=== PATIENT | male | born 1945 | race Caucasian/White ===

== ENCOUNTER → 2016-10-31 | Outpatient (CLI) | payer OTHER ==
--- NOTE | 2016-10-31 09:59 | EKG ---
[address] [address] Measurements Intervals [place] Rate: 43 P: 63 [place]: 178 QRS: 29 QRSD: 94 T: 54 QT: 450 QTc: 396 Interpretive Statements SINUS BRADYCARDIA INTERPRETATION BASED ON A DEFAULT AGE OF 40 YEARS No previous ECG available for comparison Electronically Signed On 10-31-16 12:16:25 MST by Shahram Serrano MD [email or web address]
[2016-10-31 10:44] LABS: BASOPHILS # (AUTO) 0.04 10*3/UL; BASOPHILS % (AUTO) 0.7 % (0-1); EOSINOPHILS % (AUTO) 3.4 % (0-8); HEMATOCRIT 43.3 % (42.0-52.0); HEMOGLOBIN 14.9 g/dL (14.0-18.0); IMM GRAN % (AUTO) 0.2 % (0-5); IMM GRAN# (AUTO) 0.01 10*3/UL; LYMPHOCYTES # (AUTO) 1.96 10*3/uL; LYMPHOCYTES % (AUTO) 36.7 % (10-50); MEAN CORPUSCULAR HEMOGLOBIN 32.5 PG (27-31); MEAN CORPUSCULAR HGB CONC 34.4 g/dL (33-37); MEAN PLATELET VOLUME 10.9 FL (7.4-12.2); MONOCYTES # (AUTO) 0.66 10*3/UL (0.3-0.8); MONOCYTES % (AUTO) 12.4 % (5-15); NEUTROPHILS # (AUTO) 2.49 10*3/UL; NEUTROPHILS % (AUTO) 46.6 % (50-80); RED BLOOD COUNT 4.58 10^6/uL (4.70-6.10); WHITE BLOOD COUNT 5.34 10^3/uL (4.8-10.8)
[2016-10-31 10:47] LABS: PLATELET MORPHOLOGY COMMENT NORMAL MORPHOLOGY (NORM)
[2016-10-31 10:52] LABS: ASPARTATE AMINO TRANSFERASE 25 IU/L (21-57); BILIRUBIN,TOTAL 0.7 mg/dL (0.3-1.2); BLOOD UREA NITROGEN 17 mg/dL (7-22); BUN/CREATININE RATIO 15.45 (6-20); CALCIUM 9.7 mg/dL (8.7-10.7); CHLORIDE 104 meq/L (98-112); CREATININE 1.1 mg/dL (0.70-1.50); EST GLOMERULAR FILTRATION > 60 (>60 ml/min/1.73m(2)); GLUCOSE 94 mg/dL (78-110); POTASSIUM 4.9 meq/L (3.8-5.2); SODIUM 139 meq/L (135-145); TOTAL PROTEIN 6.5 g/dL (6.1-8.0)
[2016-11-01 17:48] LABS: HCV AB SCREEN Negative (Negative)
== END ==
LOC: MOB LAB 09:40
PROVIDERS: ATTEND Family Medicine
DX: R07.89 Other chest pain (principal); R91.1 Solitary pulmonary nodule; I34.1 Nonrheumatic mitral (valve) prolapse; E78.5 Hyperlipidemia, unspecified; I10 Essential (primary) hypertension; I49.8 Other specified cardiac arrhythmias; I50.9 Heart failure, unspecified; Z20.5 Contact with and (suspected) exposure to viral hepatitis
CPT/HCPCS: 80053; 83880; 84439; 84484; 85025; 86803; 93005; 93010

== ENCOUNTER → 2016-11-07 | Outpatient (CLI) | payer OTHER ==
[2016-11-07 08:45] LABS: HEMOGLOBIN A1C 5.72 % (4.2-6.0); MEAN BLOOD GLUCOSE (CALC) 104.476 mg/dL
[2016-11-07 08:47] LABS: LDL CHOLESTEROL,CALCULATED 82.6 mg/dL
[2016-11-07 09:51] LABS: FREE T4 (FREE THYROXINE) 0.88 ng/dL (0.93-1.71)
== END ==
LOC: LAB 08:22
PROVIDERS: ATTEND Family Medicine
DX: I49.8 Other specified cardiac arrhythmias (principal); R07.9 Chest pain, unspecified; I10 Essential (primary) hypertension; E78.5 Hyperlipidemia, unspecified; R91.1 Solitary pulmonary nodule; I34.1 Nonrheumatic mitral (valve) prolapse; E55.9 Vitamin D deficiency, unspecified
CPT/HCPCS: 36415; 80061; 82306; 83036; 84153; 84439; 84443

== ENCOUNTER → 2016-12-08 | Outpatient (CLI) | payer OTHER ==
--- NOTE | 2016-12-08 15:01 | DI ---
DUPLEX COLOR DOPPLER CAROTID ULTRASOUND, 12/08/2016 11:58 AM: Clinical History: Dizziness. Previous Exam: None at this facility. Technique: 2D real time imaging is supplemented with duplex color doppler ultrasound imaging. RIGHT CAROTID ARTERY: 2D real time imaging of the right carotid system shows a normal appearance of the right common caroti d artery and the right internal and extra carotid arteries. Peak systolic velocities through the righ t common carotid, the external carotid, and the internal carotid are 106 cm/s, 55 cm/s, and 113 cm/s, respectively. All values correspond to diameter stenoses of 0-49%. LEFT CAROTID ARTERY: 2D real time imaging of the left carotid system shows a normal appearance of the left common carotid artery. There is a small noncalcified plaque in the posterior aspect of the carotid bulb. The left in ternal and external carotid arteries have a normal appearance. Peak systolic velocities through the l eft common carotid, the external carotid, and the internal carotid are 88 cm/s, 107 cm/s, and 105 cm/ s, respectively. All values correspond to diameter stenoses of 0-49%. VERTEBRAL ARTERIES: There is antegrade flow through both vertebral arteries Cardiac rhythm is regular. Peak systolic [place] through the visualized portions of the right and left vertebral arteries are 58 cm/s and 41 cm /s, respectively. All values correspond to diameter stenoses of 0-49%. Throughout the entire exam, the patient exhibited sinus bradycardia with heart rates as low as 49 lacey ts per minute. Readin. There is no significant hemodynamic stenosis of either carotid system. 2. There is antegrade flow through both vertebral arteries. 3. Cardiac rhythm is regular but there is sinus bradycardia with one measurement as low as 49 beats per minute.
== END ==
LOC: US 11:52
PROVIDERS: ATTEND Family Medicine
DX: R42 Dizziness and giddiness (principal); R00.1 Bradycardia, unspecified
CPT/HCPCS: 93880

== ENCOUNTER → 2016-12-16 | Outpatient (CLI) | payer OTHER | LOC: MMPC 10:00 | PROVIDERS: ATTEND Specialist | DX: R00.2 Palpitations (principal); E87.5 Hyperkalemia; I10 Essential (primary) hypertension | CPT/HCPCS: 99203; G0463 ==

== ENCOUNTER → 2017-02-04 | Outpatient (CLI) | payer OTHER ==
[2017-02-04 15:20] LABS: BILIRUBIN,URINE NEGATIVE (NEG); COLOR,URINE YELLOW; GLUCOSE, URINE (UA) NEGATIVE (NEG); NITRATE,URINE NEGATIVE (NEG); PROTEIN,URINE NEGATIVE (NEG); UROBILINOGEN,URINE 0.2 mg/dL (0.2)
[2017-02-04 15:23] LABS: CLARITY,URINE CLEAR (CLEAR); OCCULT BLOOD,URINE TRACE (NEG)
[2017-02-04 15:24] LABS: RBC,URINE 0 /hpf; URINE SAMPLE TYPE VOIDED SPECIMEN; WBC,URINE 0
[2017-02-04 15:54] LABS: FREE T4 (FREE THYROXINE) 0.72 ng/dL (0.93-1.71)
== END ==
LOC: LAB 15:00
PROVIDERS: ATTEND Family Medicine
DX: R30.0 Dysuria (principal); E55.9 Vitamin D deficiency, unspecified; R94.6 Abnormal results of thyroid function studies; Z12.5 Encounter for screening for malignant neoplasm of prostate
CPT/HCPCS: 36415; 81001; 82306; 84439; 84443; 87088; G0103

== ENCOUNTER → 2017-02-09 | Outpatient (CLI) | payer OTHER ==
--- NOTE | 2017-02-12 09:28 | HOLTER ---
[facility] [place] Interpretive Statements Forty eight hour holter monitor done for palpitations. There were [id number] beats recorded with [id number] normal beats. An adequate diary was kept. The average heart rate was 63, maximum sinus rate of 132 with physical activity, and minimum rate of 44 during sleep There were 106 PACs recorded with 73 singlets, 8 pairs and 3 runs, the longest greater than 10 beats at a maximum rate of 125 during sleep. No VPCs, significant pauses or ST-T wave changes were noted. The patient recorded symptoms of (the heart doing it's thing) while in sinus rhythm. Normal heart rate response was seen during physical activity and eating with most of the atrial ectopy seen during the sleeping hours. IMP: Abnormal holter study with occasional PACs and 3-10 beat runs of SVT, occuring predominately during sleeping hours. No correlation of symptoms with atrial ectopy. Electronically Signed On 02-12-17 16:54:38 MDT by Gael Page [id number]
== END ==
LOC: RT 14:28
PROVIDERS: ATTEND Specialist
DX: R00.2 Palpitations (principal); R07.9 Chest pain, unspecified
CPT/HCPCS: 93225; 93226; 93227

== ENCOUNTER → 2017-04-27 | Outpatient (CLI) | payer OTHER ==
[2017-04-27 15:25] LABS: FREE T4 (FREE THYROXINE) 0.74 ng/dL (0.93-1.71)
== END ==
LOC: LAB 14:08
PROVIDERS: ATTEND Family Medicine
DX: R94.6 Abnormal results of thyroid function studies (principal)
CPT/HCPCS: 36415; 84439; 84443

== ENCOUNTER → 2017-05-13 | Outpatient (CLI) | payer OTHER | LOC: MMPC 09:00 | PROVIDERS: ATTEND Family Medicine | DX: I10 Essential (primary) hypertension (principal); K21.9 Gastro-esophageal reflux disease without esophagitis; E78.5 Hyperlipidemia, unspecified; I34.1 Nonrheumatic mitral (valve) prolapse; R91.1 Solitary pulmonary nodule | CPT/HCPCS: 99213; G0463 ==